=== PATIENT | female | born 1945 | race Caucasian/White ===

== ENCOUNTER → 2016-10-25 | Day surgery (SDC) | payer MEDICARE, OTHER ==
[~2016-10-25] MED LIST: Lactated Ringers 1,000 ML IV SCH; Lactated Ringers 1,000 ML ONE
[2016-10-25 09:31] VITALS: BP 147/59
--- NOTE | 2016-10-25 11:25 | OR ---
DATE OF OPERATION: 10/25/2016 PREOPERATIVE DIAGNOSIS: SCREENING COLONOSCOPY. POSTOPERATIVE DIAGNOSIS: SCREENING COLONOSCOPY. SURGEON: Reilly Leon MD PROCEDURE: FULL-LENGTH COLONOSCOPY. 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 COMPLICATIONS: None. SPECIMEN: None. FINDINGS: 1. Full-length colonoscopy. 2. Minimal sigmoid diverticulosis mostly rectosigmoid. RECOMMENDATIONS: Follow up colonoscopy on an as-needed basis only. INDICATIONS: The patient had a colonoscopy over 15 years. She will be recommended a screening procedure given her age. DESCRIPTION OF PROCEDURE: The patient was prepped and draped, placed in the left lateral decubitus position. A lubricated Olympus colonoscope was inserted and easily advanced to the cecum. Direct visualization of the ileocecal valve and appendiceal orifice was accomplished. The bowel prep was excellent. Upon withdrawal of the scope throughout the entire length of the colon, I found no signs of any polyps, masses, ulcerations, or bleeding sites. No vascular abnormalities or signs of colitis. The patient had a few scattered diverticula in the distal sigmoid and then in the rectosigmoid junction, very minimal, however, no acute inflammatory changes were seen. The rectal vault appeared benign. It is very redundant in this area and flat hard to retroflex, but upon withdrawal in direct exam no perianal lesions were seen. Air was suctioned as best as possible, the scope was removed. The patient was stable in the recovery room. ESTEPHANIE/SANCHEZ /[id number]
== END ==
LOC: CC.SDS 07:09
PROVIDERS: ATTEND Family Medicine
DX: Z12.11 Encounter for screening for malignant neoplasm of colon (principal); K57.30 Diverticulosis of large intestine without perforation or abscess without bleeding; K21.9 Gastro-esophageal reflux disease without esophagitis; J44.9 Chronic obstructive pulmonary disease, unspecified
CPT/HCPCS: G0121; J7120; 00810

== ENCOUNTER 2021-01-13 17:47 | Emergency (ER) | payer MEDICARE, OTHER ==
[2021-01-13] MEDS ORDERED: Glucagon,Human Recombinant 1 MG Vial IVPUSH ONE ×2 (17:56→18:37)
[2021-01-13] MEDS ORDERED: Sodium Chloride 0.9% 10 ML Syringe FLUSH PRN (17:56)
--- NOTE | 2021-01-13 18:08 | EDM.PDOC ---
ED HPI GENERAL MEDICAL PROBLEM - General Chief Complaint: General Stated Complaint: Chest Pain Time Seen by Provider: 01/13/21 17:54 Source of Information: Reports: Patient History Limitations: Reports: No Limitations - History of Present Illness INITIAL COMMENTS - FREE TEXT/NARRATIVE: This patient is a 75 year old female that has presented to the ER with complaint of epigastric chest pain. Patient has roommate at bedside. Patient reports that yesterday morning she took a pill and the pill felt like it got stuck in her chest. Patient reports that since yesterday morning the pain comes and goes. She reports the stuck sensation remains constant. Patient reports that she has had some nausea, spitting up phlegm, hard to swallow, loss of appetite, belching, and pain at epigastric. Patient denies alonso, dizziness, v, d, f, shortness of breath, radiation of pain. Patient reports she had this issue about 10 years ago, was given some medicine, and it resolved. Patient reports that she does have difficulty eating foods and swallowing pills before and she needs to be scoped. She reports she has an appointment with PCP on Friday and was going to discus with him. Onset Date: 01/12/21 Severity: Moderate Improves with: Reports: None Worsens with: Reports: Eating Associated Symptoms: Reports: Chest Pain, Loss of Appetite, Nausea/Vomiting (spitting up phlem). Denies: Confusion, Cough, cough w sputum, Diaphoresis, Fever/Chills, Headaches, Malaise, Rash, Seizure, Shortness of Breath, Syncope, Weakness - Related Data Allergies Allergy/AdvReac Type Severity Reaction Status Date / Time amoxicillin trihydrate Allergy Cannot Verified 01/13/21 17:52 [From Augmentin] Remember potassium clavulanate Allergy Cannot Verified 01/13/21 17:52 [From Augmentin] Remember Home Meds: Home Meds ALPRAZolam [Alprazolam] 0.5 mg PO TID PRN 08/24/14 [History] Meloxicam 15 mg PO DAILY 08/24/14 [History] Metoprolol Succinate [Toprol XL 50mg] 50 mg PO DAILY 08/24/14 [History] Temazepam [Restoril] 15 mg PO BEDTIME PRN 08/24/14 [History] amLODIPine Besylate [Amlodipine Besylate] 5 mg PO DAILY 08/24/14 [History] Pantoprazole Sodium [Protonix] 40 mg PO DAILY 10/23/16 [History] Sertraline HCl [Zoloft] 50 mg PO DAILY 10/23/16 [History] tiZANidine HCl [Tizanidine HCl] 4 mg PO BID 10/23/16 [History] traMADol HCl [Tramadol HCl] 50 mg PO Q6H PRN 10/23/16 [History] Biotin 1,000 mg PO BID 09/11/20 [History] Calcium Carbonate/Vitamin D3 [Calcium 500 mg-Vit D3 600 Unit] 1 tab PO BID 09/11/20 [History] Glucosam/Chondr/Collagn/Hyalur [Glucosamine & Chondroitin Cap] 1 tab PO BID [History] Social & Family History - Family History Family Medical History: No Pertinent Family History - Tobacco Use Tobacco Use Status *Q: Never Tobacco User Second Hand Smoke Exposure: No - Caffeine Use Caffeine Use: Reports: None - Recreational Drug Use Recreational Drug Use: No ED ROS GENERAL - Review of Systems Review Of Systems: See Below Constitutional: Reports: No Symptoms HEENT: Reports: No Symptoms Respiratory: Reports: No Symptoms Cardiovascular: Reports: Chest Pain. Denies: Dyspnea on Exertion, Edema, Lightheadedness, Palpitations, Syncope Endocrine: Reports: No Symptoms GI/Abdominal: Reports: Abdominal Pain (epigastric pain), Decreased Appetite, Difficulty Swallowing (spitting phlegm. Reflux sensation), Nausea : Reports: No Symptoms Musculoskeletal: Reports: No Symptoms Skin: Reports: No Symptoms Neurological: Reports: No Symptoms Psychiatric: Reports: No Symptoms Hematologic/Lymphatic: Reports: No Symptoms Immunologic: Reports: No Symptoms ED EXAM, GENERAL - Physical Exam Exam: See Below Exam Limited By: No Limitations General Appearance: Alert, WD/WN, No Apparent Distress Eye Exam: Bilateral Eye: Normal Inspection Ears: Normal External Exam, Normal Canal, Hearing Grossly Normal, Normal TMs Ear Exam: Bilateral Ear: Auricle Normal, Canal Normal, TM normal Nose: Normal Inspection, Normal Mucosa, No Blood Throat/Mouth: Normal Inspection, Normal Lips, Normal Teeth, Normal Gums, Normal Oropharynx, Normal Voice, No Airway Compromise Head: Atraumatic, Normocephalic Neck: Normal Inspection, Supple, Non-Tender, Full Range of Motion Respiratory/Chest: No Respiratory Distress, Lungs Clear, Normal Breath Sounds, No Accessory Muscle Use, Chest Non-Tender Cardiovascular: Normal Peripheral Pulses, Regular Rate, Rhythm, No Edema, No Gallop, No JVD, No Murmur, No Rub Peripheral Pulses: 2+: Radial (L), Radial (R), Posterior Tibial (L), Posterior Tibial (R) GI/Abdominal: Normal Bowel Sounds, Soft, No Organomegaly, No Distention, No Abnormal Bruit, No Mass, Pelvis Stable, Tender (epigastric tenderness, made her pain worse, also made her belch and dry heave.) Back Exam: Normal Inspection, Full Range of Motion Extremities: Normal Inspection, Normal Range of Motion, Non-Tender, No Pedal Edema, Normal Capillary Refill Neurological: Alert, Oriented, Normal Cognition, Normal Gait, No Motor/Sensory Deficits Psychiatric: Normal Affect, Normal Mood Skin Exam: Warm, Dry, Intact, Normal Color, No Rash Lymphatic: No Adenopathy #1 Interpretation EKG Date: 01/13/21 Time: 17:44 Rhythm: NSR Rate (Beats/Min): 77 QRS: Normal ST-T: Normal QT: Normal Course - Vital Signs Last Recorded V/S: Last Vital Signs Temp 98.3 F 01/13/21 21:39 Pulse 85 01/13/21 21:39 Resp 18 01/13/21 21:39 BP 119/26 L 01/13/21 21:39 Pulse Ox 96 01/13/21 21:39 - Orders/Labs/Meds Orders: Active Orders 24 hr Category Date Time Status EKG Documentation Completion [RC] STAT Care 01/13/21 17:56 Active Abdomen Pelvis w Cont [CT] Stat Exams 01/13/21 18:26 Taken Chest 2V [CR] Stat Exams 01/13/21 17:56 Taken CULTURE BLOOD [BC] Stat Lab 01/13/21 18:30 Received CULTURE BLOOD [BC] Stat Lab 01/13/21 18:32 Received UA RFX RACHNA AND CULT IF INDIC [URIN] Stat Lab 01/13/21 18:38 Ordered Sodium Chloride 0.9% [Normal Saline] 500 ml Med 01/13/21 18:45 Active IV .BOLUS Sodium Chloride 0.9% [Saline Flush] Med 01/13/21 17:56 Active 10 ml FLUSH ASDIRECTED PRN Blood Culture x2 Reflex Set [OM.PC] Stat Oth 01/13/21 18:19 Ordered Saline Lock Insert [OM.PC] Routine Oth 01/13/21 17:56 Ordered Medication Orders Sodium Chloride (Normal Saline) 500 mls @ 1,000 mls/hr IV .BOLUS KARMA Last Admin: 01/13/21 18:41 Dose: 1,000 mls/hr Documented by: SERGEI Sodium Chloride (Sodium Chloride 0.9% 10 Ml Syringe) 10 ml FLUSH ASDIRECTED PRN PRN Reason: Keep Vein Open Labs: Laboratory Tests 01/13/21 01/13/21 01/13/21 Range/Units 18:05 18:05 18:05 WBC 14.6 H (5.0-10.0) 10^3/uL RBC 5.10 (4.00-5.50) 10^6/uL Hgb 17.1 H (12.0-16.0) g/dL Hct 50.5 H (37.0-47.0) % MCV 99.0 H (82.0-94.0) fL MCH 33.5 H (27.0-32.0) pg MCHC 33.9 (33.0-38.0) g/dL RDW Coeff of [place]aly[place] 12.9 (11.0-15.0) % Plt Count 188 (150-400) 10^3/uL Neut % (Auto) 84.0 (35-85) % Lymph % (Auto) 6.2 L (10-55) % [place] % (Auto) 9.4 (0-16) % Eos % (Auto) 0.3 (0-5) % Baso % (Auto) 0.1 (0-3) % Neut # (Auto) 12.30 H (1.80-7.00) 10^3/uL Lymph # (Auto) 0.91 L (1.00-4.80) 10^3/uL [place] # (Auto) 1.37 H (0.00-0.80) 10^3/uL Eos # (Auto) 0.05 (0.00-0.45) 10^3/uL Baso # (Auto) 0.01 10^3/uL PT 10.8 (9.7-12.3) SEC INR 0.99 (0.92-1.18) Sodium 144 (136-145) mEq/L Potassium 4.2 (3.5-5.0) mEq/L Chloride 105 (98-106) mEq/L Carbon Dioxide 18 L (21-32) mmol/L BUN 33 H (7-18) mg/dL Creatinine 1.0 (0.6-1.0) mg/dL Est Cr Clr Drug Dosing 44.41 mL/min Estimated GFR (MDRD) 54 L (>=60) mL/min Glucose 72 L (75-99) mg/dL Lactic Acid (0.4-2.0) mmol/L Calcium 8.8 (8.4-10.1) mg/dL Total Bilirubin 0.8 (0.0-1.0) mg/dL AST 29 (15-37) U/L ALT 26 (12-78) U/L Alkaline Phosphatase 86 (46-116) U/L Lactate Dehydrogenase 146 (100-190) U/L Creatine Kinase 54 (21-215) U/L Troponin I < 0.017 (0.00-0.06) ng/mL Total Protein 7.4 (6.4-8.2) g/dL Albumin 3.6 (3.4-5.0) g/dL Amylase 69 (25-115) U/L Lipase 63 L (73-393) U/L // Range/Units 18:05 WBC (5.0-10.0) 10^3/uL RBC (4.00-5.50) 10^6/uL Hgb (12.0-16.0) g/dL Hct (37.0-47.0) % MCV (82.0-94.0) fL MCH (27.0-32.0) pg MCHC (33.0-38.0) g/dL RDW Coeff of [place] (11.0-15.0) % Plt Count (150-400) 10^3/uL Neut % (Auto) (35-85) % Lymph % (Auto) (10-55) % [place] % (Auto) (0-16) % Eos % (Auto) (0-5) % Baso % (Auto) (0-3) % Neut # (Auto) (1.80-7.00) 10^3/uL Lymph # (Auto) (1.00-4.80) 10^3/uL [place] # (Auto) (0.00-0.80) 10^3/uL Eos # (Auto) (0.00-0.45) 10^3/uL Baso # (Auto) 10^3/uL PT (9.7-12.3) SEC INR (0.92-1.18) Sodium (136-145) mEq/L Potassium (3.5-5.0) mEq/L Chloride (98-106) mEq/L Carbon Dioxide (21-32) mmol/L BUN (7-18) mg/dL Creatinine (0.6-1.0) mg/dL Est Cr Clr Drug Dosing mL/min Estimated GFR (MDRD) (>=60) mL/min Glucose (75-99) mg/dL Lactic Acid 1.3 (0.4-2.0) mmol/L Calcium (8.4-10.1) mg/dL Total Bilirubin (0.0-1.0) mg/dL AST (15-37) U/L ALT (12-78) U/L Alkaline Phosphatase (46-116) U/L Lactate Dehydrogenase (100-190) U/L Creatine Kinase (21-215) U/L Troponin I (0.00-0.06) ng/mL Total Protein (6.4-8.2) g/dL Albumin (3.4-5.0) g/dL Amylase (25-115) U/L Lipase (73-393) U/L Meds: Medications Generic Name Dose Route Start Last Admin Trade Name Freq PRN Reason Stop Dose Admin Sodium Chloride 500 mls @ 1,000 mls/hr 01/13/21 18:45 01/13/21 18:41 Normal Saline IV 1,000 mls/hr .BOLUS KARAM Administration Sodium Chloride 10 ml 01/13/21 17:56 Sodium Chloride 0.9% 10 Ml Syringe FLUSH ASDIRECTED PRN Keep Vein Open Discontinued Medications Generic Name Dose Route Start Last Admin Trade Name Freq PRN Reason Stop Dose Admin Famotidine 20 mg 01/13/21 18:37 01/13/21 18:41 Famotidine 20 Mg/2 Ml Sdv IVPUSH 01/13/21 18:38 20 mg ONETIME ONE Administration Glucagon 1 mg 01/13/21 17:56 01/13/21 18:09 Glucagon,Human Recombinant 1 Mg Vial IVPUSH 01/13/21 17:57 1 mg ONETIME ONE Administration Glucagon 1 mg 01/13/21 18:37 01/13/21 18:42 Glucagon,Human Recombinant 1 Mg Vial IVPUSH 01/13/21 18:38 1 mg ONETIME ONE Administration Iopamidol 100 ml 01/13/21 18:17 01/13/21 19:01 Iopamidol 755 Mg/Ml 100 Ml Bottle IVPUSH 01/13/21 18:18 100 ml ONETIME ONE Administration - Radiology Interpretation Free Text/Narrative:: CT Abd/Pelvis: See report: Evidence for prior gastric surgery. 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 There is some debris identified withini the distal esophagus along with fluid suggesting an active gastroesophageal reflux may exist. There may be some stricturing of the stomach at the fundal wrap. Continued report... - Re-Assessments/Exams Free Text/Narrative Re-Assessment/Exam: 01/13/21 18:39 WBC is 14.6. No fever. Patient epigastric tenderness, will CT with IV contrast. 01/13/21 18:43 Patient reports her pain has improved, but the sensation of FB still feels like it is present. Will give another dose of Glucagon and Pepcid. 01/13/21 20:16 Patient attempted water and vomited the water. She reports still has sensation of FB stuck. 01/13/21 21:38 I called and spoke to [facility] Dr. Briceño GI, he reports can transfer patient for EGD. He reports to send the patient to the ER. [facility] reports do not need to give report to ER, as Dr. Briceño is accepting. 01/13/21 21:48 Patient was given option of private vehicle transfer, but roommate and daughter can not drive her due to having to work in the morning and daughter only 2 hours of sleep today. Will transfer via EMS. Departure - Departure Time of Disposition: 21:49 Disposition: DC/Tfer to Acute Hospital 02 Condition: Fair Clinical Impression: Epigastric pain Esophageal foreign body Qualifiers: Encounter type: initial encounter Qualified Code(s): T18.108A - Unspecified foreign body in esophagus causing other injury, initial encounter - Discharge Information *PRESCRIPTION DRUG MONITORING PROGRAM REVIEWED*: Not Applicable *COPY OF PRESCRIPTION DRUG MONITORING REPORT IN PATIENT [place]: Not Applicable Referrals: Page,Stefan, MD [Primary Care Provider] - Forms: ED Department Discharge Sepsis Event Note (ED) - Evaluation Sepsis Screening Result: No Definite Risk - Focused Exam Vital Signs: Vital Signs Temp Pulse Resp BP Pulse Ox 01/13/21 21:39 98.3 F 85 18 119/26 L 96 01/13/21 17:52 97.8 F 86 14 157/78 H 97 - My Orders Last 24 Hours: My Active Orders 01/13/21 17:56 EKG Documentation Completion [RC] STAT Chest 2V [CR] Stat Sodium Chloride 0.9% [Saline Flush] 10 ml FLUSH ASDIRECTED PRN Saline Lock Insert [OM.PC] Routine 01/13/21 18:19 Blood Culture x2 Reflex Set [OM.PC] Stat 01/13/21 18:26 Abdomen Pelvis w Cont [CT] Stat 01/13/21 18:30 CULTURE BLOOD [BC] Stat 01/13/21 18:32 CULTURE BLOOD [BC] Stat 01/13/21 18:38 UA RFX RACHNA AND CULT IF INDIC [URIN] Stat 01/13/21 18:45 Sodium Chloride 0.9% [Normal Saline] 500 ml IV .BOLUS - Assessment/Plan Last 24 Hours: My Active Orders 01/13/21 17:56 EKG Documentation Completion [RC] STAT Chest 2V [CR] Stat Sodium Chloride 0.9% [Saline Flush] 10 ml FLUSH ASDIRECTED PRN Saline Lock Insert [OM.PC] Routine 01/13/21 18:19 Blood Culture x2 Reflex Set [OM.PC] Stat 01/13/21 18:26 Abdomen Pelvis w Cont [CT] Stat 01/13/21 18:30 CULTURE BLOOD [BC] Stat 01/13/21 18:32 CULTURE BLOOD [BC] Stat 01/13/21 18:38 UA RFX RACHNA AND CULT IF INDIC [URIN] Stat 01/13/21 18:45 Sodium Chloride 0.9% [Normal Saline] 500 ml IV .BOLUS Plan: PLEASE SEE RN NOTE FOR PFSH Risk vs Benefits being explained to the patient of transfer. She has accepted t he transfer. The risk of transfer are MVC, , worsening of pain, vomiting. The risk of staying in [facility] is vomiting, worsening of FB pain, no scope ability. The benefits of transfer are higher level of care, EGD abilities, specialist. The benefits of staying in [facility] is close to home.
[2021-01-13] MEDS ORDERED: Iopamidol 755 Mg/ML 100 ML Bottle IVPUSH ONE (18:17)
[2021-01-13 18:23] LABS: CHLORIDE,CL 105 mEq/L (98-106); SODIUM,NA 144 mEq/L (136-145)
[2021-01-13] MEDS ORDERED: Famotidine 20 MG/2 ML SDV IVPUSH ONE (18:37)
[2021-01-13] MEDS ORDERED: Sodium Chloride 0.9% 500 ML IV SCH (18:45)
[2021-01-13 21:40] VITALS: BP 119/26; PULSE 85
== END 2021-01-14 00:15 ==
LOC: CC.ED 17:47
DX: T18.108A Unspecified foreign body in esophagus causing other injury, initial encounter (principal); R10.13 Epigastric pain; Z88.0 Allergy status to penicillin
CPT/HCPCS: 36415; 71046; 74177; 80053; 82150; 82550; 83605; 83615; 83690; 84484; 85025; 85610; 87040; 93005; 93010; 96374; 96375; 96376; 99284; 99285-25; J1610; J3490; J7040; Q9967